=== PATIENT | female | born 1965 | race Caucasian/White ===

== ENCOUNTER 2016-07-05 08:02 | Emergency (ER) ==
--- NOTE | 2016-07-05 09:07 | PROVIDER DOCUMENTATION ---
HPI-Abdominal Pain/GI Problem - General Chief Complaint: Abdominal Pain Stated Complaint: CP/ABD PAIN Time Seen by Provider: 07/05/16 08:50 Source: patient Allergies/Adverse Reactions: Patient Allergies Allergy/AdvReac Type Severity Reaction Status Date / Time Penicillins Allergy HIVES Verified 07/05/16 08:28 ketorolac tromethamine * AdvReac NAUSEA Verified 07/05/16 08:28 [From Toradol] Home Medications: Home Medication List Medication Instructions Recorded Confirmed Last Taken Type Alprazolam [Xanax] 0.25 mg PO DAILY 07/05/16 07/05/16 07/05/16 07:00 History Aspirin [Ecotrin] 81 mg PO DAILY 07/05/16 07/05/16 Unknown History Carvedilol [Coreg] 25 mg PO DAILY 07/05/16 07/05/16 07/04/16 20:00 History Clopidogrel [Plavix] 75 mg PO DAILY 07/05/16 07/05/16 07/04/16 19:00 History Gabapentin 300 mg PO TID 07/05/16 07/05/16 07/04/16 19:00 History Hydrocodone/APAP 7.5 mg/325 mg 1 each PO Q6H PRN PRN #10 tablet 07/05/16 Unknown Rx [Lewis-7.5] Lisinopril 20 mg PO DAILY 07/05/16 07/05/16 07/04/16 19:00 History Pantoprazole Sodium [Protonix] 40 mg PO DAILY #30 tablet. 07/05/16 Unknown Rx - History of Present Illness-ABD Nature of Presenting Problems: Pt is a 50 yof who came to the ED with a cc of epigastric pain. Pt reports she woke up with this pain at 5 this morning. Pt denies chest pain, fever, chills, N /V. Abdominal Pain Onset Location: reports: epigastric Pain Radiation: reports: no radiation Quality of Pain: reports: cramping Severity in ED: reports: mild Onset/Duration: reports: 4-6 hours ago Timing: reports: still present Activities at Onset: reports: none Modifying Factors: improves with: nothing Associated Symptoms: reports: denies symptoms Last BM: unsure Rectal Bleeding: reports: none Rectal Pain: reports: none Bruising or Bleeding Gums?: No Similar Symptoms Previously?: No Recently seen or treated by another doctor?: No Review of Systems - Adult - REVIEW OF SYSTEMS - ADULT Constitutional: denies: chills, fever Eyes: reports: no symptoms reported Ears, Nose, Mouth & Throat: denies: ear pain, sinus problem Cardiovascular: reports: no symptoms reported Respiratory: reports: no symptoms reported Gastrointestinal: reports: other (epigastric pain). denies: diarrhea, nausea, vomiting Genitourinary: reports: no symptoms reported Musculoskeletal: reports: no symptoms reported Integumentary: reports: no symptoms reported Neurological: reports: no symptoms reported Psychiatric: reports: no symptoms reported Endocrine: reports: no symptoms reported Hematologic/Lymphatic: reports: no symptoms reported Allergic/Immunologic: reports: no symptoms reported All Other Systems: Reviewed and Negative Past History - Adult - PAST MEDICAL HISTORY-ADULT Review of Records: reports: Old Records Reviewed, Nursing Assessment Review Major Childhood Illnesses: reports: denies history Cardiovascular: reports: HTN, other (AMI) Respiratory: reports: denies history Gastrointestinal: reports: GERD Obstetrical/Gynecological: reports: denies history Genitourinary: reports: denies history Musculoskeletal: reports: denies history Neurological: reports: denies history Endocrine/Immune: reports: denies history Other Conditions: reports: denies history - PRIOR SURGERIES/PROCEDURES Surgical/Procedure History: reports: tonsillectomy, other (tubal ) - IMMUNIZATION STATUS Childhood Immunizations: See Nurse Assessment Flu Vaccine: See Nurse Assessment - FAMILY HISTORY Family History: reviewed, not pertinent Physical Exam-General - CONSTITUTIONAL General Appearance: appears well, alert, no apparent distress - EYES Eyes: PERRL/EOMI, pink conjunctivae, fundi clear, no AV nicking - HEAD, EARS, NOSE, MOUTH & THROAT HENMT: normocephalic/atraumatic, moist mucous membranes, normal ENT inspection, TMs normal, pharynx normal - NECK Neck: non-tender - RESPIRATORY Respiratory: chest non-tender, lungs clear, normal breath sounds, no pleuratic chest pain, no respiratory distress, no accessory muscle use - CARDIOVASCULAR Cardiovascular: normal peripheral pulses, regular rate, rhythm, no edema, no gallop, no JVD, no murmur - GASTROINTESTINAL (ABDOMEN) Abdominal Exam: soft, tenderness (epigastric) - LYMPHATIC Lymphatic: no adenopathy - MUSCULOSKELETAL Back Exam: normal inspection, no CVA tenderness, no vertebral tenderness Extremity: normal range of motion - SKIN Integumentary: normal color, warm/dry - NEUROLOGIC Neurologic: video software engineer II-XII nml as tested, grossly normal - PSYCHIATRIC Psych/Mental Status: normal mood/affect, normal thought content, normal thought process, oriented x 3 Progress - PLAN OF CARE/RESULTS Progress/Plan/Lab Results: Vital Signs - 24 hr 07/05/16 08:10 Temperature 97.4 F L Pulse Rate 78 Respiratory 18 Rate Blood Pressure 220/107 O2 Sat by Pulse 100 Oximetry - EKG 1 Time of EKG reading by physician:: 08:24 EKG Read and Signed by:: Carlos Bliss EKG Interpretation (*Must complete 3 of following elements*): Abnormal Rate: 69 (septal infarct, age undetermined. ST and T wave abnormality, consider ischemia) Rhythm: NSR Departure - Departure Time of Disposition Order: 11:21 DIAGNOSIS: Epigastric abdominal pain GERD (gastroesophageal reflux disease) Qualifiers: Esophagitis presence: esophagitis presence not specified Qualified Code(s): K21.9 - Gastro-esophageal reflux disease without esophagitis Disposition: HOME 01 Certified Medical Emergency: Emergent Condition: Stable Prescriptions: Hydrocodone/APAP 7.5 mg/325 mg [Lewis-7.5] 1 each PO Q6H PRN PRN #10 tablet PRN Reason: Pain Pantoprazole Sodium [Protonix] 40 mg PO DAILY #30 tablet. Referrals: None,PCP [Primary Care Provider] - Instructions: Nausea, Adult, Gastroesophageal Reflux Disease, Adult Attestation - Scribe Verification/Attestation Scribe:: Wanda Rivas Acting as Scribe for:: Carlos Bliss Scribe documention review:: This chart was documented by a scribe and accurately reflects the service the provider performed and the decisions made by the provider.
[2016-07-05 09:14] LABS: MANUAL DIFF NEEDED? NO
[2016-07-05 09:16] LABS: BASO% 0.3 % (0.0-0.8); EOS# 0.16 X1000 (0.0-0.7); EOS% 2.7 % (0.0-10.0); HEMATOCRIT 45.2 % (37.0-47.0); HEMOGLOBIN 15.2 g/dL (12.0-16.0); LYMPH% 26.8 % (20.5-51.1); MCHC 33.6 g/dL (33-37); MCV 89.3 FL (81-99); MONO# 0.64 X1000 (0.11-0.59); MONO% 10.7 % (1.7-9.3); MPV 10.3 FL (7.4-10.4); NEUT% 59.5 % (42.2-75.2); PLT 240 X1000 (130-400); RBC 5.06 XMIL (4.2-5.4)
[2016-07-05] MEDS ORDERED: ZOFRAN ONE (09:22)
[2016-07-05] MEDS ORDERED: MORPHINE ONE (09:23)
[2016-07-05] MEDS ORDERED: ZOFRAN IV ONE (09:27)
[2016-07-05] MEDS ORDERED: MORPHINE IV ONE (09:27)
[2016-07-05 09:36] LABS: URINE CULTURE NEEDED? NO; URINE MICRO REVIEW NEEDED? NO; URINE SOURCE CATH
[2016-07-05 09:49] LABS: AGAP 11; ALKALINE PHOSPHATASE 95 U/L (32-104); AMYLASE 31 U/L (20-200); BUN 13 mg/dL (8-22); CALCIUM 9.3 mg/dL (8.8-10.2); CHLORIDE 101 mmol/L (98-107); COSMO 278; GOT 16 U/L (10-30); GPT 17 U/L (10-36); LIPASE 24 U/L (13-60); SODIUM 140 mmol/L (136-145); TCO2 28 mmol/L (25-35); TOTAL BILIRUBIN 0.51 mg/dL (0.20-1.00); TOTAL PROTEIN 7.5 g/dL (6.3-8.3)
[2016-07-05 10:21] LABS: BILIRUBIN URINE NEGATIVE (NEGATIVE); BLOOD URINE NEGATIVE (NEGATIVE); COLOR YELLOW; GLUCOSE URINE NEGATIVE (NEGATIVE); LEUKOCYTES URINE NEGATIVE (NEGATIVE); NITRITE URINE NEGATIVE (NEGATIVE); PROTEIN URINE 30 mg/dL (NEGATIVE); SP GRAVITY URINE 1.015; TURBIDITY URINE CLEAR (CLEAR); UROBILINOGEN URINE NORMAL (NORMAL)
[2016-07-05 10:23] LABS: UR EPITHELIAL CELLS <10 /HPF (<10); URINE BACTERIA 1+ /HPF; URINE RBC <10 /HPF (<10); URINE WBC <10 /HPF (<10)
[2016-07-05 11:31] VITALS: BP 163/89
--- NOTE | 2016-07-07 09:00 | EKG Report ---
Test Performed on : 07/05/2016 08:24:38 AM Test Reason : No Order in [employer] Blood Pressure : / mmHG Vent. Rate : 069 BPM Atrial Rate : 069 BPM P-R Int : 128 ms QRS Dur : 078 ms QT Int : 414 ms P-R-T Axes : 055 050 098 degrees QTc Int : 443 ms Normal sinus rhythm. Septal infarct , age undetermined ST & T wave abnormality, consider lateral ischemia Abnormal ECG No previous ECGs available Unconfirmed Result
== END 2016-07-05 11:34 | disposition home or self-care (01) ==
LOC: ED 08:02
DX: K21.9 Gastro-esophageal reflux disease without esophagitis (principal); R10.13 Epigastric pain; I10 Essential (primary) hypertension; I25.2 Old myocardial infarction; R94.31 Abnormal electrocardiogram [ECG] [EKG]; Z79.899 Other long term (current) drug therapy; Z79.02 Long term (current) use of antithrombotics/antiplatelets; Z79.82 Long term (current) use of aspirin
CPT/HCPCS: 80053; 81001; 82150; 82948; 83690; 85025; 93005; J2270; J2405